=== PATIENT | female | born 1985 | race Caucasian/White ===

== ENCOUNTER 2016-08-05 18:01 | Emergency (ER) | payer MEDICAID ==
[~2016-08-05] VITALS: Ht 154.9 cm; Wt 67.0 kg
[~2016-08-05 18:01] MED LIST: ACET1TAB40 PO; FAMO40TA38 PO
[2016-08-05 18:41] VITALS: Ht 154.9 cm; Wt 67.0 kg
[2016-08-05] MEDS ORDERED: ACETAMINOPHEN 500 MG TAB PO STA (20:14)
[2016-08-05] MEDS ORDERED: TYL500 PO (20:27)
--- NOTE | 2016-08-05 20:34 | ERD ---
ER Documentation Chief Complaint Date/Time DATE: 08/05/16 TIME: 20:31 Chief Complaint IM shot given 3 months ago still painful, 7 wks HPI This is a 31-year-old female presents to the ER with left arm pain. Patient states that 3 months ago she had back pain, came to the ER and was told that she did not have anything. Because of this she consulted her neighbor who got her a medication from [facility] and gave her an IM injection at home. Patient states that since that she noticed she has a hard bowel where the neighbor injected her. She still has pain. Patient is currently 7 weeks . She denies any vaginal bleeding or any pelvic pain. She denies any urinary frequency or dysuria. ROS 12 point review of systems was done, all negative except per HPI. Medications Home Meds Active Scripts Acetaminophen* (Tylenol*) 500 Mg Tab, 1000 MG PO Q8H Y for PAIN AND OR ELEVATED TEMP for 3 Days, TAB Prov:INDRA LEVY 08/05/16 Famotidine* (Pepcid*) 40 Mg Tablet, 40 MG PO HS, #30 TAB Prov:BLAKE LOPEZ MD 11/21/14 Acetaminophen-Codeine* (Acetaminophen-Cod #3*) 300-30 Mg Tab, 1 TAB PO Q4H Y for PAIN, #14 TAB Prov:BLAKE LOPEZ MD 11/21/14 Allergies Allergies: Coded Allergies: No Known Allergy (Unverified , 11/21/14) PMhx/Soc Medical and Surgical Hx: pt denies Medical Hx, pt denies Surgical Hx History of Surgery: No Anesthesia Reaction: No Hx Neurological Disorder: No Hx Respiratory Disorders: No Hx Cardiac Disorders: No Hx Psychiatric Problems: No Hx Miscellaneous Medical Probl: No Hx Alcohol Use: No Hx Substance Use: No Hx Tobacco Use: No Smoking Status: Never smoker Physical Exam Vitals Vital Signs Date Time Temp Pulse Resp B/P Pulse Ox O2 Delivery O2 Flow Rate FiO2 08/05/16 18:41 99.0 57 18 135/69 100 Physical Exam Const: [] Head: Atraumatic Eyes: Normal Conjunctiva Resp: Clear to auscultation bilaterally Cardio: Regular rate and rhythm, no murmurs Skin: No petechiae or rashes Ext: Hard 2 cm x 3 cm mass left upper arm. That is painful. Neur: Awake and alert Psych: Normal Mood and Affect Results 24 hrs Current Medications Medications (Trade) Dose Ordered Sig/Terell Route PRN Reason Start Time Stop Time Status Last Admin Dose Admin Acetaminophen (Tylenol Tab) 1,000 mg ONCE STAT PO 08/05/16 20:14 08/05/16 20:15 DC 08/05/16 20:29 Procedures/MDM This is a 31-year-old female presents to the ER with continued arm pain after an IM injection that was given to her by her neighbor. At this time I am unable to do any imaging because patient is . Patient will be given Tylenol. She should continue taking Tylenol at home if she still has pain. She is to follow-up with her primary care doctor within 1-2 days or return to ER sooner if symptoms worsen. My medical decision making sure with the patient and she understands and agrees with plan. Departure Diagnosis: Primary Impression: Pain of left arm Condition: Stable Patient Instructions: Taking Medication Safely Additional Instructions: Llame al doctor TISHA y dai josé JAVAD PARA DENTRO DE 1-2 MILIAN.Dgale a la secretaria que nosotros le instruimos hacer esta javad.Avise o llame si fajardo condicin se empeora antes de la javad. Regresa aqui si peor o no mejor. INDRA LEVY Aug 05, 2016 20:34
[2016-08-05 21:13] VITALS: BP 103/66; PULSE 73; RESP 20; TEMP 98.1
== END 2016-08-05 21:16 | disposition home or self-care (01) ==
LOC: FTE 18:01
DX: O99.89 Other specified diseases and conditions complicating pregnancy, childbirth and the puerperium (principal); M79.602 Pain in left arm; Z3A.01 Less than 8 weeks gestation of pregnancy
CPT/HCPCS: Z7502; Z7610; 99283

== ENCOUNTER 2017-03-20 19:52 | Inpatient (IN) | payer MEDICAID ==
[~2017-03-20] VITALS: Ht 147.3 cm; Wt 64.2 kg
[~2017-03-20 19:52] MED LIST changes: +TYL500 PO
[2017-03-20 20:25] VITALS: Ht 147.3 cm; Wt 64.2 kg
[2017-03-20] MEDS ORDERED: PREN1TAB79 PO (20:27)
[2017-03-20] MEDS ORDERED: IRON1TAB78 PO (20:27)
[2017-03-20] MEDS ORDERED: MISOPROSTOL 200 MCG TAB PR PRN (23:30)
[2017-03-20] MEDS ORDERED: OXYTOCIN 30 UNITS/LR 500 ML IV SCH ×2 (23:30)
[2017-03-20] MEDS ORDERED: LIDOCAINE 1% (MPF) 30 ML INJ INJ PRN (23:30)
[2017-03-20] MEDS ORDERED: METHYLERGONOVINE 0.2 MG INJ IM PRN (23:30)
[2017-03-20] MEDS ORDERED: CARBOPROST 250 MCG INJ IM PRN (23:30)
[2017-03-20] MEDS ORDERED: OXYCODONE/ASPIRIN (4.88/325) TAB PO PRN (23:30)
[2017-03-20] MEDS ORDERED: BUTORPHANOL 2 MG INJ IV PRN ×2 (23:30)
[2017-03-20] MEDS ORDERED: IBUPROFEN 600 MG TAB PO PRN (23:30)
[2017-03-20] MEDS ORDERED: OXYTOCIN 30 UNITS/LR 500 ML IV PRN (23:30)
[2017-03-20] MEDS ORDERED: LACTATED RINGER'S 1,000 ML IV PRN (23:35)
[2017-03-20] MEDS: LACTATED RINGER'S 1,000 ML IV SCH (23:57)
[2017-03-21 00:19] LABS: BASOPHILS % 0.3 % (0.0-2.0); EOSINOPHILS % 0.1 % (0.0-7.0); HEMATOCRIT 36.8 % (37.0-47.0); HEMOGLOBIN 12.8 g/dl (12.0-16.0); LYMPHOCYTES # 1.2 10^3/ul (0.8-2.9); LYMPHOCYTES % 15.9 % (15.0-51.0); MEAN CORPUSCULAR HEMOGLOBIN 30.5 pg (29.0-33.0); MEAN CORPUSCULAR HGB CONC 34.8 g/dl (32.0-37.0); MEAN CORPUSCULAR VOLUME 87.6 fl (82.0-101.0); MEAN PLATELET VOLUME 10.7 fl (7.4-10.4); MONOCYTE # 0.5 10^3/ul (0.3-0.9); MONOCYTES % 6.6 % (0.0-11.0); NEUTROPHIL # 5.8 10^3/ul (1.6-7.5); NEUTROPHILS % 76.7 % (39.0-77.0); PLATELET COUNT 202 10^3/UL (140-415); RED CELL DISTRIBUTION WIDTH 12.7 % (11.5-14.5); WHITE BLOOD COUNT 7.6 10^3/ul (4.8-10.8)
--- NOTE | 2017-03-21 00:19 | TRIAGE ---
OB Triage Datetime Report Generated by CPN: 03/21/2017 00:19 Datetime: 03/21/2017 00:18 Assessment Type: Admission Assessment Datetime: 03/21/2017 00:16 Time of Arrival: 03/21/2017 00:16 EGA: 40.2 Arrived By: Ambulatory Arrived From: Other Unit in Hospital Datetime: 03/21/2017 00:07 Stage of : Labor Datetime: 03/20/2017 23:05 Vaginal Exam Dilatation (cms): 3.0 Effacement (%): 80 Station: -2 Exam By: C GILBERT Cervix, Consistency: Soft Presentation 'A': Cephalic Datetime: 03/20/2017 23:00 Contraction Comments: APPLIED Comments: APPLIED Datetime: 03/20/2017 21:00 Stage of : OB Triage Datetime: 03/20/2017 20:40 Stage of : OB Triage Time of Arrival: 03/20/2017 19:45 EGA: 40.1 Arrived By: Ambulatory Arrived From: Home Chief Complaint: CONTRACTION Movement: Present Contractions: Occasional Contractions: 9-16 MINUTES Rupture of Membranes: Denies Vaginal Bleeding: None Vaginal Discharge: Denies Recent Sexual Intercouse: Denies Abdominal Trauma: Not Applicable Patient Complaints: Contractions Initial Plan: EFM, SVE, CALL OB Labor Evaluation Frequency: 9-16.5 Monitor Mode: External Duration (sec)2399: 50-90 Quality: Mild Pattern: Normal: <= 5 Contractions in 10 Minutes Resting Tone [place]: Relaxed Heart Rate FHR Baseline Rate: 135 Monitor Mode: External US Variability: Moderate 6-25 bpm Accelerations: 15X15 Decelerations: None Category: Category I Datetime: 03/20/2017 20:20 Stage of : OB Triage Maternal Assessment Level of Consciousness: Fully Conscious DTR's/Clonus: DTRs 2+; No Clonus Headache: Denies Blurred Vision: No Respiratory Effort: Unlabored; Regular Rhythm; Equal Expansion Breath Sounds, Left: Clear and Equal Breath Sounds, Right: Clear and Equal Nausea/Vomiting: Denies RUQ Epigastric Pain: Denies Lower Extremities Edema: None Degree: None Upper Extremities Edema: None Degree: None Facial Edema: None Temperature Route: Oral Fall Risk Assessment History of Falling: (0) No Secondary Diagnosis: (0) No Ambulatory Aid: (0) Bedrest/Nurse Assist IV Therapy: (0) No Gait: (0) Normal/Bedrest/Immobile Mental Status: (0) Oriented to Own Ability Fall Score: 0 Fall Risk Score Definition: No Risk: No action required Pain Assessment Pain Scale: 7 Pain Presence: Intermittent Pain Type: Contraction Pain Location: Abdomen; Back Pain Relief Measures: Comfort Measures Vaginal Exam Dilatation (cms): 2.0 Effacement (%): 60 Station: -3 Exam By: Abilio HUNT Membrane Status: Intact Vaginal Bleeding: None Cervix, Consistency: Moderate Presentation 'A': Cephalic Datetime: 03/20/2017 20:02 Contraction Comments: APPLIED Comments: APPLIED
[2017-03-21 00:37] LABS: INR 0.95; PROTIME 12.7 Sec (12.2-14.2)
[2017-03-21 00:38] LABS: PARTIAL THROMBOPLASTIN TIME 26.9 Sec (25.0-35.0)
[2017-03-21] MEDS ORDERED: OXYTOCIN 30 UNITS/LR 500 ML IV SCH (01:00)
[2017-03-21] MEDS: LACTATED RINGER'S 1,000 ML IV SCH (07:23)
--- NOTE | 2017-03-21 10:21 | HP ---
Date/Time of Note Date/Time of Note DATE: 03/21/17 TIME: 10:15 OB - History Hx of Present Free Text/Dictation 32 years old female 0101 admitted to [facility] in labor pelvic examination on admission cervix 3 cm dilated 80% effaced vertex is -2 station contraction every 3-5 minutes heart rate category 1 Past Family/Social History * Past Medical, Surgical, Family and Obstetric Histories reviewed from chart. OB Admission Exam Physical Exam HEENT: WNL Heart: Rhythm Normal Lungs: Clear, Equal Abdomen: WNL Extremities: Normal Reflexes: Normal Cervical Dilatation: 3cm Effacement: 75% Station: -2 Membranes: Intact Heart Rate: 130's Accelerations: Accelerations Present Decelerations: No Decelerations Varibility: Moderate Contractions on Admission: < 5 Minutes Apart Last 72 hours Lab Results CBC & BMP 03/20/17 23:52 OB Assessment/Plan Reason for admission: active labor Plan: Expectant Management Other plan: 32 years old admitted to [facility] in labor pelvic examination on admission cervix 3 cm dilated 80% effaced vertex presentation at -2 station contraction 3-5 minutes heart rate category 1 patient transferred from recovery room to the labor and delivery anticipating vaginal delivery. ARI LLOYD MD Mar 21, 2017 10:21
--- NOTE | 2017-03-21 10:25 | LDN ---
Date/Time of Note Date/Time of Note DATE: 03/21/17 TIME: 10:21 Delivery Summary Normal spontaneous vaginal delivery of a baby girl from OA position shoulders delivered without difficulty rest of the baby's body follow baby had nuchal cord 1, placenta spontaneous expulsion inspected seemed complete patient sustained very small perineal laceration repaired with 3-0 chromic catgut to meet with blood loss 200 cc Weeks of Gestation 40 weeks and 2 days Placenta Delivered: Spontaneously Meconium: none Episiotomy: No Laceration repair: Small first-degree perineal laceration repaired with 3-0 chromic catgut Anesthesia type: Local Estimated blood loss: 200 Sponge & Needle done & correct: Yes All needle counts correct: Yes Any foreign bodies felt in the: No Problems: Infant Delivery Information Sex Infant Sex: female Apgars 1 Minute: 9 5 Minute: 9 Suctioning Nose & mouth suctioned at alexandre: Yes Delee suction performed: No Umbilical Cord Umbilical cord with: 3 Vessels Cord presentations: nuchal cord Nuchal cord present X: 1 Cord Blood was obtained: Yes ARI LLOYD MD Mar 21, 2017 10:25
[2017-03-21 11:50] VITALS: BP 96/61; PULSE 76; RESP 22
[2017-03-21] MEDS: IBUPROFEN 600 MG TAB PO SCH ×2 (12:12→18:00)
[2017-03-21] MEDS: OXYTOCIN 30 UNITS/LR 500 ML IV SCH ×2 (12:13→15:56)
[2017-03-21] MEDS ORDERED: LANOLIN 7 GM TUBE TOP PRN (12:30)
[2017-03-21] MEDS ORDERED: DIBUCAINE 1% 30 GM OINT PR PRN (12:30)
[2017-03-21] MEDS ORDERED: WITCH HAZEL/GLYCERIN PAD PR PRN (12:30)
[2017-03-21] MEDS ORDERED: ONDANSETRON 4 MG INJ IV PRN (12:30)
[2017-03-21] MEDS ORDERED: ACETAMINOPHEN 325 MG TAB PO PRN (12:30)
[2017-03-21] MEDS ORDERED: OXYCODONE/ASPIRIN (4.88/325) TAB PO PRN ×2 (12:30)
[2017-03-21] MEDS ORDERED: ACETAMINOPHEN/CODEINE #3 TAB PO PRN (12:30)
[2017-03-21] MEDS ORDERED: HYDROCODONE/APAP (5/325) TAB PO PRN (12:30)
[2017-03-21] MEDS ORDERED: ACETAMINOPHEN 500 MG TAB PO PRN (12:30)
[2017-03-21] MEDS ORDERED: BENZOCAINE 20% 56 ML SPRAY TOP PRN (12:30)
[2017-03-21 16:08] VITALS: BP 91/53; PULSE 74; RESP 16
[2017-03-21] MEDS: HYDROCODONE/APAP (5/325) TAB PO PRN (20:56)
[2017-03-21 22:00] VITALS: BP 97/64; PULSE 65; RESP 18
[2017-03-21] MEDS: SENNA/DOCUSATE NA (8.6MG/50MG) TAB PO SCH (22:24)
[2017-03-22] VITALS: BP 94/59; PULSE 63; RESP 18
[2017-03-22] MEDS: IBUPROFEN 600 MG TAB PO SCH ×4 (00:07→17:24)
[2017-03-22] MEDS: FAMOTIDINE 20 MG TAB PO SCH ×2 (00:07→21:00)
[2017-03-22 04:00] VITALS: BP 98/56; PULSE 64; RESP 18
[2017-03-22 08:00] VITALS: BP 99/54; PULSE 80
[2017-03-22] MEDS: SENNA/DOCUSATE NA (8.6MG/50MG) TAB PO SCH ×2 (09:02→21:57)
--- NOTE | 2017-03-22 09:59 | QN ---
Documentation Comment Post normal vaginal delivery day 1 Afebrile Vital signs are stable Abdomen soft uterus firm lochia normal Extremities normal Ambulation encouraged ARI LLOYD MD Mar 22, 2017 09:59
[2017-03-22 12:11] LABS: BASOPHILS % 0.2 % (0.0-2.0); EOSINOPHILS % 0.4 % (0.0-7.0); HEMATOCRIT 33.3 % (37.0-47.0); HEMOGLOBIN 11.5 g/dl (12.0-16.0); LYMPHOCYTES % 12.2 % (15.0-51.0); MEAN CORPUSCULAR HEMOGLOBIN 30.8 pg (29.0-33.0); MEAN CORPUSCULAR HGB CONC 34.5 g/dl (32.0-37.0); MEAN CORPUSCULAR VOLUME 89.3 fl (82.0-101.0); MEAN PLATELET VOLUME 10.8 fl (7.4-10.4); MONOCYTE # 0.5 10^3/ul (0.3-0.9); MONOCYTES % 5.7 % (0.0-11.0); NEUTROPHIL # 6.6 10^3/ul (1.6-7.5); PLATELET COUNT 161 10^3/UL (140-415); RED BLOOD COUNT 3.73 10^6/ul (4.20-5.40); RED CELL DISTRIBUTION WIDTH 12.9 % (11.5-14.5); WHITE BLOOD COUNT 8.2 10^3/ul (4.8-10.8)
[2017-03-22 16:30] VITALS: BP 108/56; PULSE 58; RESP 18
[2017-03-22] MEDS ORDERED: INFLUENZA VIRUS VACCINE 0.5 ML SYG IM* ONE (17:30)
[2017-03-22 20:00] VITALS: BP 94/57; PULSE 67; RESP 17
[2017-03-22] MEDS: HYDROCODONE/APAP (5/325) TAB PO PRN (22:50)
[2017-03-23 04:00] VITALS: BP 95/62; PULSE 65; RESP 18
[2017-03-23] MEDS: IBUPROFEN 600 MG TAB PO SCH ×3 (06:09→11:41)
[2017-03-23] MEDS ORDERED: MEASLES,MUMPS,RUBELLA VACCINE INJ SC* ONE (09:00)
[2017-03-23] MEDS: SENNA/DOCUSATE NA (8.6MG/50MG) TAB PO SCH (09:02)
--- NOTE | 2017-03-23 12:23 | QN ---
Documentation Comment PPD#2 is stable afebrile No VB +BM +voids VS stable Gen NAD Abd soft NT ND Genitalia No blood at perinium -->discharge home MARIBEL POE M.D. Mar 23, 2017 12:23
--- NOTE | 2017-03-23 12:26 | DS ---
Date/Time of Note Date/Time of Note DATE: 03/23/17 TIME: 12:25 Discharge Summary Admission/Discharge Info Admit Date/Time Mar 21, 2017 at 00:25 Discharge Date/Time 03/23/17 Discharge Diagnosis Patient Condition: Good Procedures vaginal delivery Hospital Course uneventful Home Meds Active Scripts Acetaminophen* (Tylenol*) 500 Mg Tab, 1000 MG PO Q8H Y for PAIN AND OR ELEVATED TEMP for 3 Days, TAB Prov:INDRA LEVY 08/05/16 Famotidine* (Pepcid*) 40 Mg Tablet, 40 MG PO HS, #30 TAB Prov:BLAKE LOPEZ MD 11/21/14 Acetaminophen-Codeine* (Acetaminophen-Cod #3*) 300-30 Mg Tab, 1 TAB PO Q4H Y for PAIN, #14 TAB Prov:BLAKE LOPEZ MD 11/21/14 Reported Medications Iron,Carbonyl/Vit C/Vit B12/Fa (IRON 100 PLUS TABLET) 1 Each Tablet, 1 EACH PO, TAB 03/20/17 Vit W-Ca,Fe,FA(<1 mg) ( Vitamins) 1 Each Tablet, 1 EACH PO, TAB 03/20/17 Primary Care Provider Care Physician No Primary MARIBEL POE M.D. Mar 23, 2017 12:26
[2017-03-23 13:16] LABS: RUBELLA ANTIBODY - IGG 0.95 index
== END 2017-03-23 14:10 | disposition home or self-care (01) | DRG 775 ==
LOC: OBT 19:52 → L-D 19:54 → OBT 03-21 00:24 → L-D 03-21 00:25 → PP1 03-21 11:50
PROVIDERS: ADMIT Obstetrics & Gynecology; ATTEND Obstetrics & Gynecology
PROC: 10E0XZZ Delivery of Products of Conception, External Approach (ICD-10-PCS; principal; 2017-03-21)
PROC: 0HQ9XZZ Repair Perineum Skin, External Approach (ICD-10-PCS; 2017-03-21)
PROC: 4A1HXCZ Monitoring of Products of Conception, Cardiac Rate, External Approach (ICD-10-PCS; 2017-03-21)
PROC: 3E0234Z Introduction of Serum, Toxoid and Vaccine into Muscle, Percutaneous Approach (ICD-10-PCS; 2017-03-22)
DX: O48.0 Post-term pregnancy (principal); O69.81X0 Labor and delivery complicated by cord around neck, without compression, not applicable or unspecified; O70.0 First degree perineal laceration during delivery; Z37.0 Single live birth; Z3A.40 40 weeks gestation of pregnancy; Z23 Encounter for immunization
CPT/HCPCS: 85025; 85610; 85730; 86592; 86703; 86762; 86900; 86901; 87340; 90686; G0463; J0595; J2590; J7120